=== PATIENT | female | born 1965 | race Caucasian/White ===

== ENCOUNTER 2016-11-28 01:38 | Day surgery (SDC) | payer OTHER ==
[~2016-11-28] VITALS: Ht 165.1 cm; Wt 68.0 kg
[2016-11-28] MEDS ORDERED: 0.9% Sodium Chloride 1,000 ML IV PRN (07:54)
[2016-11-28] MEDS ORDERED: Sodium Chloride LOK Flush 10 mL Syringe IV PRN (07:55)
[2016-11-28] MEDS ORDERED: fentaNYL-PF 50 mCg/mL 2 mL Inj IVPUSH PRN (07:55)
[2016-11-28] MEDS ORDERED: ATOR20TA PO (14:04)
[2016-11-28 14:13] VITALS: BP 118/72; PULSE 45; RESP 12; O2SAT 100
[2016-11-28] MEDS ORDERED: 0.9% Sodium Chloride 1,000 ML IV ONE (15:38)
--- NOTE | 2016-11-28 15:51 | PCM.ENDCOL ---
Colonoscopy Date of Service: November 28, 2016 Physician Kev Valencia MD Pre Procedure Diagnosis: Screening Post Procedure Dx & Findings: Hemorrhoids Procedure Colonoscopy PROCEDURE IN DETAIL: Prep adequate Withdrawal time 14 minutes After unremarkable rectal examination the Olympus video colonoscope was inserted patient's anal canal and was advanced to cecum. Landmarks were identified including the ileocecal valve and appendiceal orifice. Scope was withdrawn systematically. Visualized colonic mucosa showed healthy shiny mucosa with normal healthy-appearing vasculature. In the rectum retroflexion was done which showed hemorrhoids. Anal canal was inspected carefully on the way out and hemorrhoids noted. Impression Hemorrhoids Recommendation Repeat colonoscopy in 10 years if there is no family or personal history of colon cancer polyp. If there is, repeat colonoscopy in 5 years. Presedation Assessment Risks and Benefits Informed consent was obtained from the patient after all risks and benefits including but not limited to drug reaction, infection, pain, bleeding, perforation, as well as alternatives were discussed. Patient monitoring Continuous pulse oximetry, cardiac monitoring, blood pressure monitoring, IV access, and oxygen at 2L per nasal cannula. Periprocedural Fentanyl: Fentanyl 150mcg Incrementally Midazolam: Midazolam 6mg Incrementally Complications There were no periprocedural complications identified. Post Procedure Plan Post Procedure Recommendations 1. Restrict activities today. 2. Resume normal activities in the morning. 3. Resume medications. 4. Patient informed of normal post procedure side effects as bloating, drowsiness, blood streaking in the stool. 5. average risk CRCS. If colon polyps come back as: -Hyperplastic- can repeat colonoscopy in 10 years -Tubular adenoma- repeat colonoscopy in 5 years -Tubulovillous/villous adenoma- repeat colonoscopy in 3 years -If any dysplasia- return to clinic as soon as possible 6. Please don't hesitate to call me with any questions. Kev Valencia MD November 28, 2016 15:51
[2016-11-28 15:56] VITALS: BP 115/70; PULSE 54; RESP 12; O2SAT 98
[2016-11-28 16:07] VITALS: BP 111/69; PULSE 53; RESP 12; O2SAT 97
[2016-11-28 16:17] VITALS: BP 106/66; PULSE 54; RESP 12; O2SAT 98
[2016-11-28 16:22] VITALS: BP 122/73; PULSE 60; RESP 14; O2SAT 97
== END 2016-11-28 23:59 | disposition home or self-care (01) ==
LOC: END 01:38
PROVIDERS: ATTEND Internal Medicine
DX: Z12.11 Encounter for screening for malignant neoplasm of colon (principal); K64.8 Other hemorrhoids
CPT/HCPCS: 99153; G0121; G0500; J2250; J3010; J7030